=== PATIENT | female | born 1945 | race Caucasian/White ===

== ENCOUNTER 2016-11-05 03:48 | Emergency (ER) | payer MEDICARE, BC ==
--- NOTE | 2016-11-05 06:46 | ER ---
ADMIT: 11/05/2016 RM/LOC: ER [facility] MR#: [id number] [address] [address] JANET WELLS [address] [place] [address] Emergency Room Report SEX: F AGE: 71 : 1945 DATE: 11/05/2016 Patient is a 71-year-old female, transported by [facility] with respiratory distress that awoke her. Treated with 2 DuoNeb with marked improvement. Exam remarkable for nontoxic, afebrile female with diminished breath sounds, but no audible wheeze. Chest x-ray, negative. EKG sinus rhythm without ST-T or Q-wave change. Normal CBC, CMP, D-dimer, troponin and UA. Received magnesium 2 g, Solu-Medrol 125 mg, and discharged on prednisone 40 mg taper over 12 days. Continue to use albuterol MDI as needed. Follow up Dr. Gunn as scheduled. Denilson Nunez MD/ neil JOB #: [id number] CC: Denilson Nunez MD, Attending Physician Kesha Gunn MD, Family Physician Kesha Gunn MD
== END 2016-11-05 05:00 | disposition home or self-care (01) ==
LOC: ER 03:48
DX: J44.9 Chronic obstructive pulmonary disease, unspecified (principal); Z90.49 Acquired absence of other specified parts of digestive tract; Z98.41 Cataract extraction status, right eye; Z79.899 Other long term (current) drug therapy; Z88.2 Allergy status to sulfonamides